=== PATIENT | female | born 1965 | race Caucasian/White ===

== ENCOUNTER 2024-10-30 07:48 | Emergency (ER) | payer SELFPAY ==
[2024-10-30] VITALS (8 sets, daily range): BP systolic 143–212; BP diastolic 69–96; PULSE 79–113; RESP 16–19; TEMP 37; O2SAT 91–97; BMI 25.0
--- NOTE | 2024-10-30 08:40 | CT_ITS ---
WS: [id number] CT ABDOMEN PELVIS TECHNIQUE: Contrast-enhanced CT of the abdomen and pelvis with coronal and sagittal reformatted image s. CLINICAL INFORMATION: abdominal pain, tachy, constipation COMPARISON: None. DLP: 562.[address] scans at [facility] use at least one of these dose optimization techniques: automated e xposure control; mA and/or kV adjustment per patient size (includes targeted exams where dose is matc hed to clinical indication); or iterative reconstruction. FINDINGS: Diffuse irregular gallbladder wall thickening and enhancement with lobulation extending into the RIGH T upper quadrant with surrounding induration in the mesentery. Suspected mass or gallstone in the gal lbladder neck with peripheral enhancement. Diffuse irregular gallbladder wall thickening. Inferior as pect of the gallbladder abuts the colon. In addition proximal gallbladder abuts the traversing duoden um. Patient at risk for enteric and colonic fistulous. Common bile duct at the head of the pancreas a ppears grossly normal. No pancreatic head mass. However there is a lobulated heterogeneously enhancing mass in the LEFT adrenal gland measuring 3.4 c m. Considerations include metastatic disease versus primary adrenal cortical carcinoma. Slight bibasilar atelectasis. Diffuse fatty infiltration of the liver. Normal portal vein and splenic vein. Normal renal parenchymal enhancement. No hydronephrosis in either kidney. Normal caliber abdom inal aorta. Aortic calcification. GE junction is normal. A few prominent lymph nodes in the olena hep atis. Shotty periaortic lymph nodes. Sigmoid diverticulosis. Air-fluid level in the RIGHT colon may be due to adynamic ileus due to RIGHT upper quadrant inflammation. Normal appendix. CT/CT abdomen pelvis w con* [id number] IMPRESSION: 1. Differential considerations include gallbladder carcinoma, xanthogranulomat ous cholecystitis, or complicated/chronic cholecystitis. 2. Diffuse lobulated thickening and enhancement involving the gallbladder exte nding into the RIGHT upper quadrant with surrounding induration suspicious for mesenteric invasion or inflammation possibly with contained perforation or leak age. 3. Suggestion of enhancing mass and/or gallstone in the gallbladder neck measu ring up to 2.1 cm. 4. Common bile duct appears normal at the pancreatic head. 5. Trace perihepatic ascites 6. Enhancing irregular LEFT adrenal mass measuring 3.4 cm suspicious for metas tatic disease or adrenocortical carcinoma. 7. A few enlarged lymph nodes in the olena hepatis. 8. Increased risk of colonic and enteric fistulas due to loss of fat plane bet ween the duodenal sweep and hepatic flexure colon 9. No other acute findings. Notified ADÁN Matta at 10/30/2024 10:37 AM.
--- NOTE | 2024-10-30 08:40 | ED_ITS ---
Documented by User: ADÁN Matta 10/30/24 12:38 HPI - Abdominal Pain 2 General: Chief Complaint: Abdominal Pain Stated Complaint: constipation Time Seen by Provider: 10/30/24 08:15 Source: patient and family Mode of arrival: ambulatory Limitations: no limitations History of Present Illness: Patient is a 59-year-old female presents to ED today with complaint of abdominal pain. Patient states she had a small bowel movement on Saturday but has not produced any further stool since then apart from two small episodes of diarrhea. She reports a decreased output and flatulence. She has not had any vomiting. She states she normally has bowel movements daily. Previous abdominal surgeries include a tubal ligation. She has not been running fevers. She arrives tachycardic and hypertensive. She states she does not have a history of high blood pressure and feels like this is secondary to pain. Significant other states she has laid in bed over the past 2 days due to abdominal pain. Feels like pain is mainly located to her right side. She has not noticed any yellowing to your skin or eyes. Has had a decreased appetite secondary to pain. She is not having any urinary complaints. MD elicited complaint: abdominal pain Pertinent past history: none Onset (ago): day(s) Pain Consistency: constant Location: Diffuse, RUQ and RLQ Severity: severe Quality: cramping and fullness Radiation: none Migration to: no migration Exacerbating factors: nothing Relieving factors: nothing Associated Symptoms: Reports constipation, diarrhea and nausea; Denies change in bowel habits, chills, dysuria, fever(s), hematochezia, melena and vomiting Related Data Home Medications Medication Instructions Recorded Confirmed ibuprofen 200 mg tablet (Advil) 600 mg PO Q6H PRN Pain 10/30/24 10/30/24 senna leaf extract 8.7 mg chewable 17.4 mg PO BID PRN Constipation 10/30/24 10/30/24 tablet (Senokot) Allergies Allergy/AdvReac Type Severity Reaction Status Date / Time Penicillins Allergy ALGY-Hives Verified 10/30/24 08:42 Tetanus Vaccines and Toxoid Allergy Unknown Verified 10/30/24 08:42 Review of Systems 2 Const: Denies: fever(s), chills, body aches, fatigue or malaise Card: Denies: chest pain Resp: Denies: dyspnea GI: Reports: abdominal pain, nausea, diarrhea and constipation; Denies: vomiting, change in bowel habits, hematochezia or melena : Denies: flank pain, difficulty voiding, dysuria, urinary frequency, urinary urgency or urinary hesitancy Musc: Denies: neck pain, back pain, extremity pain, extremity swelling, joint pain or joint swelling Skin/Breast: Denies: rash Neuro: Denies: headache(s), numbness in extremities, weakness in extremities, sensory changes or dizziness Physical Exam 2 Const: COMMON NORMALS: average body habitus, patient oriented x3, no limitations, healthy appearing, alert and well nourished GENERAL APPEARANCE: cooperative and in distress (appear uncomfortable) ORIENTATION/CONSCIOUSNESS: Yes awake, Yes oriented to person, Yes oriented to place and Yes oriented to time HENMT: COMMON NORMALS: normocephalic and atraumatic HEAD & SCALP: n ormocephalic and atraumatic Eye: COMMON NORMALS: no scleral icterus Neck/C-Spine: COMMON NORMALS: full ROM, no lymphadenopathy, supple and no meningeal signs Chest: COMMONS NORMALS: normal inspection of the chest Resp: COMMON NORMALS: normal respiratory effort and clear to auscultation bilaterally AUSCULTATION: clear to auscultation bilaterally Cardio: COMMON NORMALS: regular rhythm RATE: tachycardic RHYTHM: regular rhythm GI: COMMON NORMALS: Normal to inspection, nondistended, normoactive bowel sounds present, Soft to palpation, No hepatosplenomegaly present and no masses INSPECTION: Yes normal to inspection AUSCULTATION: Yes Hypoactive bowel sounds present PALPATION: Yes Soft to palpation, Yes Tenderness to palpation present (GI) (throughout R side of abdomen mainly RUQ), Yes Guarding due to palpation present (GI) and Yes No hepatosplenomegaly present : COMMON NORMALS: Yes no CVA tenderness BLADDER/KIDNEY EXAM: Yes no CVA tenderness Back/Pelvis: COMMON NORMALS: no CVA tenderness and thoracic and lumbar spine normal to inspection Extremity: COMMON NORMALS: normal to inspection GENERAL: Yes normal exam except as noted Neuro: ОЛЬГА COMA SCALE: document GCS findings Ольга coma scale eye opening: Spontaneous Ольга coma scale verbal response: Orientated [place] coma scale motor response: Obey commands [place] coma scale total score: 15 COMMON NORMALS: patient oriented x3, moves all extremities, no focal motor deficits and no sensory deficits noted SENSORIUM/ORIENTATION: Yes alert, Yes oriented to person, Yes oriented to place and Yes oriented to time MENINGEAL SIGNS: Yes no meningeal signs Skin: COMMON NORMALS: no rashes or lesions noted GENERAL SKIN EXAM: no rashes or lesions noted Course 2 Consultations: Consultation #1: Dr. Porter-recommending transfer Consultation #2: Dr. Akhtar-[facility] surgery-accepts transfer YUE Rosario at [facility]-accepts patient Vital Signs: Vital signs: Vital Signs Temperature 98.6 F 10/30/24 08:34 Pulse Rate 93 10/30/24 16:03 Respiratory Rate 19 H 10/30/24 08:34 Blood Pressure 165/75 10/30/24 16:03 Pulse Oximetry 97 10/30/24 16:03 Oxygen Delivery Me thod Room Air 10/30/24 16:03 MDM - Abdominal Pain Medical Decision Making Patient is a 59-year-old female here for right sided abdominal pain over the past several days that has progressively worsened. She was tachycardic upon arrival. These have improved with fluids. Blood work showing a 17,000 white count. She is hyponatremic. LFTs are unremarkable apart from her alk phos which is 175. Her lactate is normal. UA suspicious for infection with a cloudy appearance, 2+ leukocyte esterase, 21-50 WBCs. On exam she is tender to her right upper quadrant. On her CT imaging she does have a significantly abnormal appearing gallbladder. Radiologist stated is diffusely lobulated and thickened. There is some concern for gallbladder carcinoma with mesenteric invasion. They did comment on the possibility of contained perforation or leakage. Spoke to our general surgeon Dr. Porter who is recommending transfer. I spoke to Sherron in [place] who accepts transfer. Dr. Hylton aware of patient and need for transfer. She has been started on IV fluids and antibiotics. Medical Records I reviewed the patient's medical records. Lab Data I reviewed the patient's lab results. 10/30/24 08:56 10/30/24 08:56 Labs/Radiology: Radiology Impressions Abdomen/Pelvis CT 10/30/24 08:40 IMPRESSION: 1. Differential considerations include gallbladder carcinoma, xanthogranulomatous cholecystitis, or complicated/chronic cholecystitis. 2. Diffuse lobulated thickening and enhancement involving the gallbladder extending into the RIGHT upper quadrant with surrounding induration suspicious for mesenteric invasion or inflammation possibly with contained perforation or leakage. 3. Suggestion of enhancing mass and/or gallstone in the gallbladder neck measuring up to 2.1 cm. 4. Common bile duct appears normal at the pancreatic head. 5. Trace perihepatic ascites 6. Enhancing irregular LEFT adrenal mass measuring 3.4 cm suspicious for metastatic disease or adrenocortical carcinoma. 7. A few enlarged lymph nodes in the olena hepatis. 8. Increased risk of colonic and enteric fistulas due to loss of fat plane between the duodenal sweep and hepatic flexure colon 9. No other acute findings. Notified ADÁN Matta at 10/30/2024 10:37 AM. Chest X-Ray 10/30/24 12:00 IMPRESSION: No acute findings. Laboratory Results WBC 17.04 10^3/uL (3.29-11.43) H 10/30/24 08:56 RBC 4.32 10^6/uL (3.85-5.65) 10/30/24 08:56 Hgb 13.90 g/dL (11.27-16.99) 10/30/24 08:56 Hct 40.8 % (36-47) 10/30/24 08:56 MCV 94.4 fl (85-98) 10/30/24 08:56 MCH 32.2 pg (27-33) 10/30/24 08:56 MCHC 34.1 g/dL (30-55) 10/30/24 08:56 RDW 13.2 % (12.1-15.1) 10/30/24 08:56 Plt Count 471 10^3/cmm (157-399) H 10/30/24 08:56 MPV 9.5 fL (7.4-10.4) 10/30/24 08:56 Neut % (Auto) 89.8 % 10/30/24 08:56 Lymph % (Auto) 4.9 % 10/30/24 08:56 [place]lee % (Auto) 4.6 % 10/30/24 08:56 Eos % (Auto) 0.0 % 10/30/24 08:56 Baso % (Auto) 0.1 % 10/30/24 08:56 Neut # (Auto) 15.29 10^3/uL (1.8-7.7) H 10/30/24 08:56 Lymph # (Auto) 0.8 10^3/uL (0.8-4.8) 10/30/24 08:56 Greenlee # (Auto) 0.8 10^3/uL (0.2-0.9) 10/30/24 08:56 Eos # (Auto) 0.0 10^3/uL (0.0-0.8) 10/30/24 08:56 Baso # (Auto) 0.0 10^3/uL (0.0-0.1) 10/30/24 08:56 Nucleated RBC % (auto) 0 % 10/30/24 08:56 Nucleated RBCs # 0.0 /100WBC 10/30/24 08:56 Sodium 127 mmol/L (136-145) L 10/30/24 08:56 Potassium 3.5 mmol/L (3.5-5.1) 10/30/24 08:56 Chloride 89 mmol/L (98-107) L 10/30/24 08:56 Carbon Dioxide 23 mmol/L (22-29) 10/30/24 08:56 Anion Gap 18.5 (5-19) 10/30/24 08:56 BUN 13 mg/dL (8-23) 10/30/24 08:56 Creatinine 0.5 mg/dL (0.5-0.9) 10/30/24 08:56 GFR Calculation 125.9 mL/min (90-130) 10/30/24 08:56 Glucose 141 mg/dL (65-115) H 10/30/24 08:56 Calculated Osmolality 266 mOsm/kg (285-295) L 10/30/24 08:56 Lactic Acid 1.2 mmol/L (0.5-2.2) 10/30/24 08:56 Calcium 9.9 mg/dL (8.5-10.5) 10/30/24 08:56 Total Bilirubin 0.5 mg/dL (0.15-1.2) 10/30/24 08:56 AST 11 U/L (0-32) 10/30/24 08:56 ALT 13 U/L (0-33) 10/30/24 08:56 Alkaline Phosphatase 175 U/L (35-105) H 10/30/24 08:56 Total Protein 8.1 g/dL (6.6-8.7) 10/30/24 08:56 Albumin 3.7 g/dL (3.5-5.2) 10/30/24 08:56 Globulin 4.4 g/dL (1.3-4.6) 10/30/24 08:56 Lipase 12 U/L (13-60) L 10/30/24 08:56 Urine Color Yellow (Yellow) 10/30/24 10:45 Urine Appearance Cloudy (CLEAR) A 10/30/24 10:45 Urine pH 7.0 (5-7) 10/30/24 10:45 Ur Specific [place] 1.026 (1.005-1.030) 10/30/24 10:45 Urine Protein Negative (Negative) 10/30/24 10:45 Urine Glucose (UA) Negative (Normal) 10/30/24 10:45 Urine Ketones Negative (Negative) 10/30/24 10:45 Urine Blood Non-haemolysed trace (Negative) 10/30/24 10:45 Urine Nitrate Negative (Negative) 10/30/24 10:45 Urine Bilirubin Negative (Negative) 10/30/24 10:45 Urine Urobilinogen 0.2 mg/dL (Negative) 10/30/24 10:45 Ur Leukocyte Esterase 2+ (Negative) A 10/30/24 10:45 Urine RBC 0-2 /hpf (0-2) 10/30/24 10:45 Urine WBC 21-50 /hpf (0-5) H 10/30/24 10:45 Ur Squamous Epith Cells 0-5 /hpf (0-5) 10/30/24 10:45 Amorphous Sediment Not Reportable 10/30/24 10:45 Urine Bacteria 1+ /hpf (NONE) H 10/30/24 10:45 Hyaline Casts 0-4 /lpf H 10/30/24 10:45 Urine Trichomonas 1+ /hpf H 10/30/24 10:45 All radiology interpretation(s) finalized by discharge Discharge Plan Discharge Patient Disposition: Xfer Short-Term Hosp Clinical Impression: Abnormal findings on diagnostic imaging of gallbladder, Adrenal mass Acute cystitis Qualifiers: Hematuria presence: without hematuria Qualified Code(s): N30.00 - Acute cystitis without hematuria Condition: Stable Referrals: Felipe Lay MD [Primary Care Provider] - Coding Level of Care Code ED Superintendent Radio Communications for Chg Fwd Documented by User: Cedric Hylton DO 10/30/24 16:45 HPI - Abdominal Pain 2 General: Chief Complaint: Abdominal Pain Stated Complaint: constipation Time Seen by Provider: 10/30/24 08:15 Related Data Home Medications Medication Instructions Recorded Confirmed ibuprofen 200 mg tablet (Advil) 600 mg PO Q6H PRN Pain 10/30/24 10/30/24 senna leaf extract 8.7 mg chewable 17.4 mg PO BID PRN Constipation 10/30/24 10/30/24 tablet (Senokot) Allergies Allergy/AdvReac Type Severity Reaction Status Date / Time Penicillins Allergy ALGY-Hives Verified 10/30/24 08:42 Tetanus Vaccines and Toxoid Allergy Unknown Verified 10/30/24 08:42 Physical Exam 2 Neuro: ОЛЬГА COMA SCALE: document GCS findings Ольга coma scale total score: 15 Course 2 Vital Signs: Vital signs: Vital Signs Temperature 98.6 F 10/30/24 08:34 Pulse Rate 93 10/30/24 16:03 Respiratory Rate 19 H 10/30/24 08:34 Blood Pressure 165/75 10/30/24 16:03 Pulse Oximetry 97 10/30/24 16:03 Oxygen Delivery Me thod Room Air 10/30/24 16:03 MDM - Abdominal Pain Medical Decision Making Patient is a 59-year-old female here for right sided abdominal pain over the past several days that has progressively worsened. She was tachycardic upon arrival. These have improved with fluids. Blood work showing a 17,000 white count. She is hyponatremic. LFTs are unremarkable apart from her alk phos which is 175. Her lactate is normal. UA suspicious for infection with a cloudy appearance, 2+ leukocyte esterase, 21-50 WBCs. On exam she is tender to her right upper quadrant. On her CT imaging she does have a significantly abnormal appearing gallbladder. Radiologist stated is diffusely lobulated and thickened. There is some concern for gallbladder carcinoma with mesenteric invasion. They did comment on the possibility of contained perforation or leakage. Spoke to our general surgeon Dr. Porter who is recommending transfer. I spoke to Sherron in [place] who accepts transfer. Dr. Hylton aware of patient and need for transfer. She has been started on IV fluids and antibiotics. Chart reviewed and patient discussed with midlevel. Agree with assessment and plan. Lab Data 10/30/24 08:56 12 08:56 Labs/Radiology: Radiology Impressions Abdomen/Pelvis CT 10/30/24 08:40 IMPRESSION: 1. Differential considerations include gallbladder carcinoma, xanthogranulomatous cholecystitis, or complicated/chronic cholecystitis. 2. Diffuse lobulated thickening and enhancement involving the gallbladder extending into the RIGHT upper quadrant with surrounding induration suspicious for mesenteric invasion or inflammation possibly with contained perforation or leakage. 3. Suggestion of enhancing mass and/or gallstone in the gallbladder neck measuring up to 2.1 cm. 4. Common bile duct appears normal at the pancreatic head. 5. Trace perihepatic ascites 6. Enhancing irregular LEFT adrenal mass measuring 3.4 cm suspicious for metastatic disease or adrenocortical carcinoma. 7. A few enlarged lymph nodes in the olena hepatis. 8. Increased risk of colonic and enteric fistulas due to loss of fat plane between the duodenal sweep and hepatic flexure colon 9. No other acute findings. Notified ADÁN Matta at 10/30/2024 10:37 AM. Chest X-Ray 10/30/24 12:00 IMPRESSION: No acute findings. Laboratory Results WBC 17.04 10^3/uL (3.29-11.43) H 10/30/24 08:56 RBC 4.32 10^6/uL (3.85-5.65) 10/30/24 08:56 Hgb 13.90 g/dL (11.27-16.99) 10/30/24 08:56 Hct 40.8 % (36-47) 10/30/24 08:56 MCV 94.4 fl (85-98) 10/30/24 08:56 MCH 32.2 pg (27-33) 10/30/24 08:56 MCHC 34.1 g/dL (30-55) 10/30/24 08:56 RDW 13.2 % (12.1-15.1) 10/30/24 08:56 Plt Count 471 10^3/cmm (157-399) H 10/30/24 08:56 MPV 9.5 fL (7.4-10.4) 10/30/24 08:56 Neut % (Auto) 89.8 % 10/30/24 08:56 Lymph % (Auto) 4.9 % 10/30/24 08:56 [place] % (Auto) 4.6 % 10/30/24 08:56 Eos % (Auto) 0.0 % 10/30/24 08:56 Baso % (Auto) 0.1 % 10/30/24 08:56 Neut # (Auto) 15.29 10^3/uL (1.8-7.7) H 10/30/24 08:56 Lymph # (Auto) 0.8 10^3/uL (0.8-4.8) 10/30/24 08:56 [place] # (Auto) 0.8 10^3/uL (0.2-0.9) 10/30/24 08:56 Eos # (Auto) 0.0 10^3/uL (0.0-0.8) 10/30/24 08:56 Baso # (Auto) 0.0 10^3/uL (0.0-0.1) 10/30/24 08:56 Nucleated RBC % (auto) 0 % 10/30/24 08:56 Nucleated RBCs # 0.0 /100WBC 10/30/24 08:56 Sodium 127 mmol/L (136-145) L 10/30/24 08:56 Potassium 3.5 mmol/L (3.5-5.1) 10/30/24 08:56 Chloride 89 mmol/L (98-107) L 10/30/24 08:56 Carbon Dioxide 23 mmol/L (22-29) 10/30/24 08:56 Anion Gap 18.5 (5-19) 10/30/24 08:56 BUN 13 mg/dL (8-23) 10/30/24 08:56 Creatinine 0.5 mg/dL (0.5-0.9) 10/30/24 08:56 GFR Calculation 125.9 mL/min (90-130) 10/30/24 08:56 Glucose 141 mg/dL (65-115) H 10/30/24 08:56 Calculated Osmolality 266 mOsm/kg (285-295) L 10/30/24 08:56 Lactic Acid 1.2 mmol/L (0.5-2.2) 10/30/24 08:56 Calcium 9.9 mg/dL (8.5-10.5) 10/30/24 08:56 Total Bilirubin 0.5 mg/dL (0.15-1.2) 10/30/24 08:56 AST 11 U/L (0-32) 10/30/24 08:56 ALT 13 U/L (0-33) 10/30/24 08:56 Alkaline Phosphatase 175 U/L (35-105) H 10/30/24 08:56 Total Protein 8.1 g/dL (6.6-8.7) 10/30/24 08:56 Albumin 3.7 g/dL (3.5-5.2) 10/30/24 08:56 Globulin 4.4 g/dL (1.3-4.6) 10/30/24 08:56 Lipase 12 U/L (13-60) L 10/30/24 08:56 Urine Color Yellow (Yellow) 10/30/24 10:45 Urine Appearance Cloudy (CLEAR) A 10/30/24 10:45 Urine pH 7.0 (5-7) 10/30/24 10:45 Ur Specific [place] 1.026 (1.005-1.030) 10/30/24 10:45 Urine Protein Negative (Negative) 10/30/24 10:45 Urine Glucose (UA) Negative (Normal) 10/30/24 10:45 Urine Ketones Negative (Negative) 10/30/24 10:45 Urine Blood Non-haemolysed trace (Negative) 10/30/24 10:45 Urine Nitrate Negative (Negative) 10/30/24 10:45 Urine Bilirubin Negative (Negative) 10/30/24 10:45 Urine Urobilinogen 0.2 mg/dL (Negative) 10/30/24 10:45 Ur Leukocyte Esterase 2+ (Negative) A 10/30/24 10:45 Urine RBC 0-2 /hpf (0-2) 10/30/24 10:45 Urine WBC 21-50 /hpf (0-5) H 10/30/24 10:45 Ur Squamous Epith Cells 0-5 /hpf (0-5) 10/30/24 10:45 Amorphous Sediment Not Reportable 10/30/24 10:45 Urine Bacteria 1+ /hpf (NONE) H 10/30/24 10:45 Hyaline Casts 0-4 /lpf H 10/30/24 10:45 Urine Trichomonas 1+ /hpf H 10/30/24 10:45 Discharge Plan Discharge Patient Disposition: Xfer Short-Term Hosp Clinical Impression: Abnormal findings on diagnostic imaging of gallbladder, Adrenal mass Acute cystitis Qualifiers: Hematuria presence: without hematuria Qualified Code(s): N30.00 - Acute cystitis without hematuria Condition: Stable Referrals: Felipe Lay MD [Primary Care Provider] - Coding Level of Care Code ED Superintendent Radio Communications for Luisito Negron
[2024-10-30 09:09] LABS: Basophils % 0.1 %; Hematocrit 40.8 % (36-47); Lymphocytes # 0.8 10^3/uL (0.8-4.8); Lymphocytes % 4.9 %; Mean Corpuscular HGB Conc 34.1 g/dL (30-55); Mean Corpuscular Hemoglobin 32.2 pg (27-33); Mean Corpuscular Volume 94.4 fl (85-98); Mean Platelet Volume 9.5 fL (7.4-10.4); Monocytes # 0.8 10^3/uL (0.2-0.9); Monocytes % 4.6 %; Neutrophils # 15.29 10^3/uL (1.8-7.7); Neutrophils % 89.8 %; Nucleated Red Blood Cells % 0 %; Platelet Count 471 10^3/cmm (157-399); Red Blood Count 4.32 10^6/uL (3.85-5.65); Red Cell Distribution Width 13.2 % (12.1-15.1); White Blood Count 17.04 10^3/uL (3.29-11.43)
[2024-10-30] MEDS: ondansetron 2 mg/ML SDV 2 mL 4 MG IVP (09:28)
[2024-10-30 09:29] LABS: Alanine Aminotransferase 13 U/L (0-33); Albumin Level 3.7 g/dL (3.5-5.2); Alkaline Phosphatase 175 U/L (35-105); Anion Gap 18.5 (5-19); Aspartate Amino Transferase 11 U/L (0-32); Blood Urea Nitrogen 13 mg/dL (8-23); Calcium 9.9 mg/dL (8.5-10.5); Carbon Dioxide 23 mmol/L (22-29); Chloride 89 mmol/L (98-107); Creatinine Clr Calc Pharmacy 120.3275; Globulin 4.4 g/dL (1.3-4.6); Glomerular Filtration Rate 125.9 mL/min (90-130); Glucose 141 mg/dL (65-115); Lactic Sepsis W/Reflex 1.2 mmol/L (0.5-2.2); Lipase 12 U/L (13-60); Osmolality Calculated 266 mOsm/kg (285-295); Potassium 3.5 mmol/L (3.5-5.1); Sodium 127 mmol/L (136-145); Total Bilirubin 0.5 mg/dL (0.15-1.2); Total Protein 8.1 g/dL (6.6-8.7)
[2024-10-30] MEDS: morphine 4 mg/mL SDV 1 mL IVP ×3 (09:30→18:38)
[2024-10-30] MEDS: sodium chloride 0.9% 1,000 ML 999 ML IV ×2 (09:32)
[2024-10-30] MEDS: iohexol 350 mg/mL 500 mL Btl (per mL) IV (09:51)
[2024-10-30] MEDS: cefepime 1,000 mg SDV 1000 MG IVP (10:38)
[2024-10-30] MEDS: metroNIDAZOLE IV 500 MG/100 ML PREMIX 100 MG IV (10:38)
[2024-10-30 10:52] LABS: Hyaline Casts Urine 0-4 /lpf; RBC Urine 0-2 /hpf (0-2); Squamous Epithelial Cell Urine 0-5 /hpf (0-5); WBC Urine 21-50 /hpf (0-5)
[2024-10-30 10:56] LABS: Add Urine Microscopic? YES; Bilirubin Urine Negative (Negative); Blood Urine Non-haemolysed trace (Negative); Glucose Urine UA Negative (Normal); Ketones Urine Negative (Negative); Leukocyte Esterase Urine 2+ (Negative); Nitrate Urine Negative (Negative); Protein Urine Negative (Negative); Specific Gravity, Urine 1.026 (1.005-1.030); Urine Color Yellow (Yellow); Urobilinogen Urine 0.2 mg/dL (Negative)
[2024-10-30 11:00] LABS: Add Urine Culture? Yes; Bacteria Urine 1+ /hpf; Trichomonas Urine 1+ /hpf; UA Slide Review UA Slide Review Perf; Urine Appearance Cloudy (CLEAR)
--- NOTE | 2024-10-30 12:00 | XRR_ITS ---
PROCEDURE INFORMATION: Exam: XR Chest Exam date and time: 10/30/2024 12:04 PM Age: 59 years old Clinical indication: Angina pectoris; Patient HX: Abd pain and constipation; Additional info: Chest pain TECHNIQUE: Imaging protocol: Radiologic exam of the chest. Views: 1 view. COMPARISON: CR XR ribs RT mn 3V w CXR1V [id number] 10/13/2018 7:05 PM FINDINGS: Lungs: Unremarkable. No consolidation. Pleural spaces: Unremarkable. No pleural effusion. No pneumothorax. Heart/Mediastinum: Unremarkable. No cardiomegaly. Bones/joints: Unremarkable. XR/XR chest 1V portable [id number] IMPRESSION: No acute findings.
--- NOTE | 2024-10-30 13:25 | P.CONIM_ITS ---
Providers/Reason For Consult 2 Consulting Physician/Specialty*: Dr. Bar Porter, DO/General Surgery Reason for Consult*: Abdominal pain Primary Care Provider: Felipe Lay MD History of Present Illness History of Present Illness Naomi Lisa is a 59 year old female Who presented to the hospital with a 6-day history of diffuse abdominal pain. She reports that she has not had a bowel movement for several days. She normally has bowel movement every day. She has had nausea as well. The pain is diffuse but mostly in the right flank. The pain does not radiate. Palpation and eating make the pain worse. Nothing seems make the pain better. She denies any hematochezia and/or melena Review of Systems 2 General: Reports: 10 or more systems reviewed and unremarkable except in HPI and below Medications/Allergies Home Medications Medication Instructions Recorded Confirmed Last Taken Type ibuprofen 200 mg tablet (Advil) 600 mg PO Q6H PRN Pain 10/30/24 10/30/24 10/27/24 History senna leaf extract 8.7 mg chewable 17.4 mg PO BID PRN Constipation 10/30/24 10/30/24 10/29/24 History tablet (Senokot) Allergies Allergy/AdvReac Type Severity Reaction Status Date / Time Penicillins Allergy ALGY-Hives Verified 10/30/24 08:42 Tetanus Vaccines and Toxoid Allergy Unknown Verified 10/30/24 08:42 Vitals/I&O/Wt Last Vital Signs Temp 98.6 F 10/30/24 08:34 Pulse 94 10/30/24 12:24 Resp 19 H 10/30/24 08:34 BP 154/79 10/30/24 12:24 Pulse Ox 91 10/30/24 12:24 O2 Del Method Room Air 10/30/24 12:24 Weight last 48 hrs Weight 155 lb Physical Exam 2 Narrative: General : Patient is well developed , no acute distress, oriented x3 Head : Normal cephalic, a-traumatic. Ears : Pinnae and external canal are normal. Hearing is normal. Eyes : PERRLA, Sclera and injection are normal. No conjunctival discharge. Nose : Mucous membranes are without erythema. Throat : buccal mucosa is normal, gums are without significant recession or hypertrophy. Lungs : Equal chest rise bilaterally, no use of accessory muscles, trachea is midline. Cor : Rate and rhythm are normal. Abdomen : Soft, distended, diffuse abdominal tenderness, negative Degroot's no g/r/m Extremities : No edema, no cyanosis or clubbing, dorsalis pedis pulses are present bilaterally, non-tender to palpation of calves. Upper extremities are normal bilaterally. Back : non-tender to palpation, no CVA tenderness. Neuro : CN II - XII intact, Upper and lower extremities have equal and full strength. Data 10/30/24 08:56 10/30/24 08:56 Micro: Microbiology 10/30/24 09:33 Blood Culture - Preliminary Blood SPECIMEN COLLECTED 10/30/24 09:30 Blood Culture - Preliminary Blood SPECIMEN COLLECTED A&P Assessment and plan (1) Abnormal findings on diagnostic imaging of gallbladder: (2) Adrenal mass: Plan Presentation and imaging are very concerning for neoplastic process involving the gallbladder. There appears to be gallbladder wall invasion into the surrounding mesentery. There is also a 3.3 cm circular heterogenous mass in the area of the left adrenal gland. Process involving the gallbladder abuts the duodenum and hepatic flexure of the colon and there is surrounding mesenteric inflammation without any pericholecystic fluid. Cholecystitis alone most likely. Recommend transfer to tertiary care facility. She has been accepted at [facility] Coding Level of Care Code 04289 Diagnoses Abnormal findings on diagnostic imaging of gallbladder R93.2 Adrenal mass E27.8
--- NOTE | 2024-10-30 20:41 | PC.NURSE ---
MATT SHELBY, ASSUMED CARE OF PT AT 1900. PER REPORT, PT REPORT HAD BEEN CALLED AND PT WAS ONLY AWAITING TRANSPORT VIA EMS.
== END 2024-10-30 20:46 | disposition short-term general hospital (02) ==
PROVIDERS: Emergency Provider Physician Assistant; PCP Family Medicine
DX: R93.2 Abnormal findings on diagnostic imaging of liver and biliary tract (principal); N30.00 Acute cystitis without hematuria
CPT/HCPCS: 71045; 74177; 80053; 81001; 83605; 83690; 85025; 87040; 87086; 96365; 96366; 96367; 96375; 96376; 99285; J0692; J2270; J2405; J3490; J7030

== ENCOUNTER 2024-12-14 04:46 | Emergency (ER) | payer BC, MEDICAID, SELFPAY ==
[2024-12-14] VITALS (12 sets, daily range): BP systolic 95–149; BP diastolic 62–88; PULSE 73–99; RESP 12–18; O2SAT 90–97; BMI 26.3
--- NOTE | 2024-12-14 04:51 | XRR_ITS ---
PROCEDURE INFORMATION: Exam: XR Right Humerus Exam date and time: 12/14/2024 5:05 AM Age: 59 years old Clinical indication: Injury or trauma; Fall; Blunt trauma (contusions or hematomas); Arm, upper; Right; Additional info: Arm pain post fall TECHNIQUE: Imaging protocol: Radiologic exam of the right humerus. Views: 2 or more views. COMPARISON: CR XR chest 1V portable [id number] 10/30/2024 12:04 PM FINDINGS: Bones/joints: Spiral fracture deformity in the proximal humeral diaphysis. At least moderate severity displacement. Varus angulation deformity. Soft tissues: Upper arm swelling. XR/[place] [id number] IMPRESSION: Positive for acute right proximal humerus diaphyseal fracture.
--- NOTE | 2024-12-14 04:54 | CTR_ITS ---
PROCEDURE INFORMATION: Exam: CT Cervical Spine Without Contrast Exam date and time: 12/14/2024 5:24 AM Age: 59 years old Clinical indication: Injury or trauma; Fall; Blunt trauma; Additional info: Fall on ETOH TECHNIQUE: Imaging protocol: Computed tomography of the cervical spine without contrast. Radiation optimization: All CT scans at this facility use at least one of these dose optimization techniques: automated exposure control; mA and/or kV adjustment per patient size (includes targeted exams where dose is matched to clinical indication); or iterative reconstruction. COMPARISON: CT head wo con* [id number] 12/14/2024 5:21 AM RADIATION DOSE METRICS: Total DLP (mGy-cm): 233.87 FINDINGS: Bones: The cervical spine demonstrates moderate degenerative changes at multiple levels. C4-C5 anterolisthesis measures 2.5 mm. Negative for acute fracture. Negative for traumatic malalignment. Lungs: Lung apices are normal. Soft tissues: Unremarkable. CT/CT cervical spin wo con* [id number] IMPRESSION: Negative for acute cervical spine pathology.
--- NOTE | 2024-12-14 04:54 | CTR_ITS ---
PROCEDURE INFORMATION: Exam: CT Head Without Contrast Exam date and time: 12/14/2024 5:21 AM Age: 59 years old Clinical indication: Injury or trauma; Fall; Blunt trauma (contusions or hematomas); Additional info: Fall on ETOH TECHNIQUE: Imaging protocol: Computed tomography of the head without contrast. Radiation optimization: All CT scans at this facility use at least one of these dose optimization techniques: automated exposure control; mA and/or kV adjustment per patient size (includes targeted exams where dose is matched to clinical indication); or iterative reconstruction. COMPARISON: No relevant prior studies available. RADIATION DOSE METRICS: Total DLP (mGy-cm): 1010.6 FINDINGS: Brain: Normal. No hemorrhage. Unremarkable white matter. No mass effect. Cerebral ventricles: No ventriculomegaly. Paranasal sinuses: Visualized sinuses are unremarkable. No fluid levels. Mastoid air cells: Visualized mastoid air cells are well aerated. Bones: Unremarkable. No acute fracture. Soft tissues: Unremarkable. CT/CT head wo con* [id number] IMPRESSION: No acute intracranial abnormality.
--- NOTE | 2024-12-14 04:55 | PC.NURSE ---
Unable to assess for suicide risk due to patient being on ETOH.
--- NOTE | 2024-12-14 05:04 | ED_ITS ---
Documented by User: Jourdan Clancy MD 12/14/24 06:07 HPI - Extremity Problem 2 General: Chief complaint: Extremity Injury, Upper Stated complaint: FALL Time Seen by Provider: 12/14/24 04:48 Source: patient and EMS Mode of arrival: EMS Limitations: altered mental status History of Present Illness: Patient arrives him home after fall. Brought in by EMS. Patient has obvious deformity to the right upper arm, reports no pain. Patient does appear quite inebriated from alcohol. She had #6 12 ounce twisted teas tonight. Related Data Home Medications Medication Instructions Recorded Confirmed ibuprofen 200 mg tablet (Advil) 600 mg PO Q6H PRN Pain 10/30/24 12/14/24 senna leaf extract 8.7 mg chewable 17.4 mg PO BID PRN Constipation 10/30/24 12/14/24 tablet (Senokot) Previous Rx's Medication Instructions Recorded hydrocodone 5 mg-acetaminophen 325 1 tab PO Q6H PRN pain #25 tabs 12/14/24 mg tablet Allergies Allergy/AdvReac Type Severity Reaction Status Date / Time Penicillins Allergy ALGY-Hives Verified 10/30/24 08:42 Tetanus Vaccines and Toxoid Allergy Unknown Verified 10/30/24 08:42 Review of Systems 2 General: Reports: 10 or more systems reviewed and unremarkable except in HPI and below Physical Exam 2 Const: COMMON NORMALS: no acute distress, patient oriented x3, alert and well nourished GENERAL APPEARANCE: comfortable, well kempt, well developed, ill appearing (chronically ill appearing) and odor of alcohol detected; not in distress and not anxious HENMT: COMMON NORMALS: normocephalic, atraumatic, external ears normal and moist oral mucous membranes HEAD & SCALP: normocephalic and atraumatic E XTERNAL EAR: Yes external ears normal Eye: COMMON NORMALS: Equal, round and reactive pupils present, EOMs intact bilaterally and conjunctivae normal CONJUNCTIVA: Yes conjunctivae normal P UPIL: Yes Equal, round and reactive pupils present Neck/C-Spine: COMMON NORMALS: full ROM, no lymphadenopathy and supple Chest: CHEST: Yes Symmetrical chest wall rise and No Surgical scars present (Chest) Resp: COMMON NORMALS: normal respiratory effort, No retractions, No use of accessory muscles and clear to auscultation bilaterally AUSCULTATION: clear to auscultation bilaterally Cardio: COMMON NORMALS: regular rate, regular rhythm, S1 normal heart sound present, S2 normal heart sound present, No gallops present (Cardio), No clicks present (Cardio), No murmurs present (Cardio) and No rub (Cardio) RATE: r egular rate RHYTHM: regular rhythm HEART SOUNDS: S1 normal heart sound present, S2 normal heart sound present and no murmurs PERIPHERAL PULSES: o ther (Radial pulses 2+ and symmetric) GI: COMMON NORMALS: Soft to palpation, non-tender and no masses INSPECTION: No abdominal distension PALPATION: Yes Soft to palpation, No Guarding due to palpation present (GI) and No Rebound tenderness present OTHER: Dull to percussion, distended abdomen with biliary drain in the right lateral abdominal wall : COMMON NORMALS: Yes no CVA tenderness BLADDER/KIDNEY EXAM: Yes no CVA tenderness Back/Pelvis: COMMON NORMALS: no CVA tenderness Extremity: COMMON NORMALS: capillary refill normal and no clubbing, cyanosis or edema NARRATIVE EXTREMITY EXAM: Right upper extremity with obvious deformity of the proximal humerus. Appears to be neurovascularly intact distal to the injury though patient is so intoxicated full exam is limited. GENERAL: Yes normal exam except as noted Neuro: COMMON NORMALS: patient oriented x3 SENSORIUM/ORIENTATION: Yes alert Psych: APPEARANCE: Yes well kempt Skin: COMMON NORMALS: no rashes or lesions noted, no wounds, turgor normal and no jaundice GENERAL SKIN EXAM: no rashes or lesions noted and turgor normal Course 2 Vital Signs: Vital signs: Vital Signs Pulse Rate 78 12/14/24 13:28 Respiratory Rate 16 12/14/24 08:31 Blood Pressure 149/85 12/14/24 13:28 Pulse Oximetry 92 12/14/24 13:28 Oxygen Delivery Me thod Room Air 12/14/24 12:45 Oxygen Flow Rate 2 12/14/24 11:00 MDM - Extremity (Nontraumatic) Medical Decision Making Patient had some mild hypoxia likely secondary to her EtOH intoxication, placed on oxygen. X-rays pending read at this time as well as CT scans. Handoff to Dr. Hylton due to shift change. Medical Records I reviewed the patient's medical records. Lab Data 12/14/24 05:54 12/14/24 05:54 Radiology Impressions Humerus X-Ray 12/14/24 04:51 IMPRESSION: Positive for acute right proximal humerus diaphyseal fracture. Cervical Spine CT 12/14/24 04:54 IMPRESSION: Negative for acute cervical spine pathology. Head CT 12/14/24 04:54 IMPRESSION: No acute intracranial abnormality. Humerus CT 12/14/24 05:10 IMPRESSION: Completely displaced right proximal humerus fracture. Abdomen/Pelvis CT 12/14/24 09:05 IMPRESSION: 1. Placement of an interval cholecystostomy tube since 10/30/2024. Cholecystotomy pigtail is coiled in the gallbladder fossa but there is no surrounding fluid/bile. The pigtail may be appropriate in position within a contracted gallbladder lumen adjacent to the gallbladder mass. To confirm placement a small amount of dilute contrast can be injected through the catheter if clinically appropriate. 2. Significant improvement in the gallbladder hydrops and the inflammatory changes and neoplastic changes in the RIGHT upper quadrant since 10/30/2024. 3. RIGHT common bile duct stent with no intrahepatic duct dilatation. 4. Small olena hepatis lymph nodes. 5. Highly suspicious for LEFT adrenal metastasis. Notified Cedric Hylton DO at 12/14/2024 10:[address] Procedure 12/14/24 11:28 IMPRESSION: 1. Uncomplicated dilute contrast injection of the cholecystotomy tube. 2. There is a small amount of contrast and blush of contrast adjacent to the insertion site of the cholecystotomy through the abdominal wall musculature. There may be a small fracture in the catheter. The patient's bandage became wet after the injection. 3. The pigtail of the cholecystotomy catheter appears appropriate. Patient's bandages were changed and the sutures at the insertion site of the cholecystotomy tube appear appropriate and there is no suture fracture. Laboratory Results WBC 17.72 10^3/uL (3.29-11.43) H 12/14/24 05:54 RBC 4.13 10^6/uL (3.85-5.65) 12/14/24 05:54 Hgb 13.10 g/dL (11.27-16.99) 12/14/24 05:54 Hct 41.5 % (36-47) 12/14/24 05:54 MCV 100.5 fl (85-98) H 12/14/24 05:54 MCH 31.7 pg (27-33) 12/14/24 05:54 MCHC 31.6 g/dL (30-55) 12/14/24 05:54 RDW 15.1 % (12.1-15.1) 12/14/24 05:54 Plt Count 235 10^3/cmm (157-399) 12/14/24 05:54 MPV 10.0 fL (7.4-10.4) 12/14/24 05:54 Neut % (Auto) 91.0 % 12/14/24 05:54 Lymph % (Auto) 5.3 % 12/14/24 05:54 Callaway % (Auto) 2.8 % 12/14/24 05:54 Eos % (Auto) 0.2 % 12/14/24 05:54 Baso % (Auto) 0.2 % 12/14/24 05:54 Neut # (Auto) 16.12 10^3/uL (1.8-7.7) H 12/14/24 05:54 Lymph # (Auto) 0.9 10^3/uL (0.8-4.8) 12/14/24 05:54 Callaway # (Auto) 0.5 10^3/uL (0.2-0.9) 12/14/24 05:54 Eos # (Auto) 0.0 10^3/uL (0.0-0.8) 12/14/24 05:54 Baso # (Auto) 0.0 10^3/uL (0.0-0.1) 12/14/24 05:54 Nucleated RBC % (auto) 0 % 12/14/24 05:54 Nucleated RBCs # 0.0 /100WBC 12/14/24 05:54 Sodium 134 mmol/L (136-145) L 12/14/24 05:54 Potassium 3.7 mmol/L (3.5-5.1) 12/14/24 05:54 Chloride 98 mmol/L (98-107) 12/14/24 05:54 Carbon Dioxide 19 mmol/L (22-29) L 12/14/24 05:54 Anion Gap 20.7 (5-19) H 12/14/24 05:54 BUN 10 mg/dL (8-23) 12/14/24 05:54 Creatinine 0.5 mg/dL (0.5-0.9) 12/14/24 05:54 GFR Calculation 125.9 mL/min (90-130) 12/14/24 05:54 Glucose 177 mg/dL (65-115) H 12/14/24 05:54 Calculated Osmolality 281 mOsm/kg (285-295) L 12/14/24 05:54 Calcium 8.8 mg/dL (8.5-10.5) 12/14/24 05:54 Total Bilirubin 0.2 mg/dL (0.15-1.2) 12/14/24 05:54 AST 31 U/L (0-32) 12/14/24 05:54 ALT 27 U/L (0-33) 12/14/24 05:54 Alkaline Phosphatase 120 U/L (35-105) H 12/14/24 05:54 Total Protein 6.9 g/dL (6.6-8.7) 12/14/24 05:54 Albumin 3.9 g/dL (3.5-5.2) 12/14/24 05:54 Globulin 3.0 g/dL (1.3-4.6) 12/14/24 05:54 Lipase 16 U/L (13-60) 12/14/24 05:54 Ethyl Alcohol < 10 mg/dL (0-10) 12/14/24 05:54 XR interpretation done by ED provider, pending radiology final review ED provider radiology interpretation(s): Proximal humerus fracture, displaced Discharge Plan Discharge Patient Disposition: Home Clinical Impression: Migration of percutaneous transhepatic biliary drain catheter Fracture of proximal end of right humerus Qualifiers: Encounter type: initial encounter Fracture type: closed Fracture morphology: o ther fracture Fracture alignment: displaced Qualified Code(s): S42.291A - Other displaced fracture of upper end of right humerus, initial encounter for closed fracture Condition: Stable Prescriptions: New hydrocodone-acetaminophen 5-325 mg tablet 1 tab PO Q6H PRN (Reason: pain) Qty: 25 0RF No Action ibuprofen [Advil] 200 mg Tablet 600 mg PO Q6H PRN (Reason: Pain) Senokot 8.7 mg Tablet,Chewable 17.4 mg PO BID PRN (Reason: Constipation) Discharge Orders: Discharge ED (Routine); Ordered 12/14/24 Ordered By: Cedric Hylton Referrals: Felipe Lay MD [Primary Care Provider] - Discharge Diet: Usual diet Discharge Activity: Resume usual activity Patient Instructions: Opioid Safety, Pain Management Activity Restrictions/Additional Instructions: Thank you for choosing [facility] for your healthcare needs today. It is very important that you follow up as instructed or that you return to the Emergency Department should you have concerns or if your condition changes or worsens in any way. You were seen in the emergency room after a fall. You have a fracture of the midshaft of the humerus. You will need follow-up with this with orthopedics. Reviewed the case with Dr. Sams who is orthopedist on-call. He recommends the splint that we applied along with a sling pain medications. And he will follow- up with you in his office. Case management will call for appointment. There was a concern about the placement of the cholecystectomy tube. Imaging specific to this with contrast injected shows it is in good position however there is appears to be a small leak at the insertion site through the abdominal wall. The radiologist suspects a small leak in the tube itself. While this is not emergent it should be addressed by the physicians you have seen previously at [facility]. You should call them to make an appointment as soon as you are able Sign Out Sign Out Data: Patient Sign Out occurred on 12/14/24 at 05:58. Patient's care was discussed, and care was transferred from Jourdan Clancy MD to Cedric Hylton DO. Coding Level of Care Code ED Digital Print Operator for Chg Fwd Documented by User: Cedric Hylton DO 12/14/24 15:14 HPI - Extremity Problem 2 General: Chief complaint: Extremity Injury, Upper Stated complaint: FALL Time Seen by Provider: 12/14/24 04:48 Related Data Home Medications Medication Instructions Recorded Confirmed ibuprofen 200 mg tablet (Advil) 600 mg PO Q6H PRN Pain 10/30/24 12/14/24 senna leaf extract 8.7 mg chewable 17.4 mg PO BID PRN Constipation 10/30/24 12/14/24 tablet (Senokot) Previous Rx's Medication Instructions Recorded hydrocodone 5 mg-acetaminophen 325 1 tab PO Q6H PRN pain #25 tabs 12/14/24 mg tablet Allergies Allergy/AdvReac Type Severity Reaction Status Date / Time Penicillins Allergy ALGY-Hives Verified 10/30/24 08:42 Tetanus Vaccines and Toxoid Allergy Unknown Verified 10/30/24 08:42 Course 2 Vital Signs: Vital signs: Vital Signs Pulse Rate 78 12/14/24 13:28 Respiratory Rate 16 12/14/24 08:31 Blood Pressure 149/85 12/14/24 13:28 Pulse Oximetry 92 12/14/24 13:28 Oxygen Delivery Me thod Room Air 12/14/24 12:45 Oxygen Flow Rate 2 12/14/24 11:00 MDM - Extremity (Nontraumatic) Medical Decision Making Patient had some mild hypoxia likely secondary to her EtOH intoxication, placed on oxygen. X-rays pending read at this time as well as CT scans. Handoff to Dr. Hylton due to shift change. Patient has a proximal third humerus fracture discussed with Dr. Sams he recommends a coaptation splint sling and he will see as an outpatient to discuss definitive care. Patient's cholecystectomy tube was possibly distracted in the course of her fall. CT was done after consultation with Dr. Grace she recommended CT with contrast. She said is difficult to completely ascertain but she feels fairly comfortable that the tube is in good position and recommended injecting with small amount of contrast to verify completely. Patient initially told that she has an appointment with GI services that but the cholecystectomy tube and biliary stent in the last month at [facility], tomorrow. I called up and talk to the fellow at the GI services. The patient actually missed the follow-up appointment with GI service issues post have her biliary stent out. They did recommend that we injected to verify placement I did forward the films to them. They are going to contact her, we also advised the patient to contact the specialty services at [facility]?for follow-up. Lab Data I reviewed the patient's lab results. 12/14/24 05:54 12/14/24 05:54 Radiology Impressions Humerus X-Ray 12/14/24 04:51 IMPRESSION: Positive for acute right proximal humerus diaphyseal fracture. Cervical Spine CT 12/14/24 04:54 IMPRESSION: Negative for acute cervical spine pathology. Head CT 12/14/24 04:54 IMPRESSION: No acute intracranial abnormality. Humerus CT 12/14/24 05:10 IMPRESSION: Completely displaced right proximal humerus fracture. Abdomen/Pelvis CT 12/14/24 09:05 IMPRESSION: 1. Placement of an interval cholecystostomy tube since 10/30/2024. Cholecystotomy pigtail is coiled in the gallbladder fossa but there is no surrounding fluid/bile. The pigtail may be appropriate in position within a contracted gallbladder lumen adjacent to the gallbladder mass. To confirm placement a small amount of dilute contrast can be injected through the catheter if clinically appropriate. 2. Significant improvement in the gallbladder hydrops and the inflammatory changes and neoplastic changes in the RIGHT upper quadrant since 10/30/2024. 3. RIGHT common bile duct stent with no intrahepatic duct dilatation. 4. Small olena hepatis lymph nodes. 5. Highly suspicious for LEFT adrenal metastasis. Notified Cedric Hylton DO at 12/14/2024 10:[address] Procedure 12/14/24 11:28 IMPRESSION: 1. Uncomplicated dilute contrast injection of the cholecystotomy tube. 2. There is a small amount of contrast and blush of contrast adjacent to the insertion site of the cholecystotomy through the abdominal wall musculature. There may be a small fracture in the catheter. The patient's bandage became wet after the injection. 3. The pigtail of the cholecystotomy catheter appears appropriate. Patient's bandages were changed and the sutures at the insertion site of the cholecystotomy tube appear appropriate and there is no suture fracture. Laboratory Results WBC 17.72 10^3/uL (3.29-11.43) H 12/14/24 05:54 RBC 4.13 10^6/uL (3.85-5.65) 12/14/24 05:54 Hgb 13.10 g/dL (11.27-16.99) 12/14/24 05:54 Hct 41.5 % (36-47) 12/14/24 05:54 MCV 100.5 fl (85-98) H 12/14/24 05:54 MCH 31.7 pg (27-33) 12/14/24 05:54 MCHC 31.6 g/dL (30-55) 12/14/24 05:54 RDW 15.1 % (12.1-15.1) 12/14/24 05:54 Plt Count 235 10^3/cmm (157-399) 12/14/24 05:54 MPV 10.0 fL (7.4-10.4) 12/14/24 05:54 Neut % (Auto) 91.0 % 12/14/24 05:54 Lymph % (Auto) 5.3 % 12/14/24 05:54 Callaway % (Auto) 2.8 % 12/14/24 05:54 Eos % (Auto) 0.2 % 12/14/24 05:54 Baso % (Auto) 0.2 % 12/14/24 05:54 Neut # (Auto) 16.12 10^3/uL (1.8-7.7) H 12/14/24 05:54 Lymph # (Auto) 0.9 10^3/uL (0.8-4.8) 12/14/24 05:54 Callaway # (Auto) 0.5 10^3/uL (0.2-0.9) 12/14/24 05:54 Eos # (Auto) 0.0 10^3/uL (0.0-0.8) 12/14/24 05:54 Baso # (Auto) 0.0 10^3/uL (0.0-0.1) 12/14/24 05:54 Nucleated RBC % (auto) 0 % 12/14/24 05:54 Nucleated RBCs # 0.0 /100WBC 12/14/24 05:54 Sodium 134 mmol/L (136-145) L 12/14/24 05:54 Potassium 3.7 mmol/L (3.5-5.1) 12/14/24 05:54 Chloride 98 mmol/L (98-107) 12/14/24 05:54 Carbon Dioxide 19 mmol/L (22-29) L 12/14/24 05:54 Anion Gap 20.7 (5-19) H 12/14/24 05:54 BUN 10 mg/dL (8-23) 12/14/24 05:54 Creatinine 0.5 mg/dL (0.5-0.9) 12/14/24 05:54 GFR Calculation 125.9 mL/min (90-130) 12/14/24 05:54 Glucose 177 mg/dL (65-115) H 12/14/24 05:54 Calculated Osmolality 281 mOsm/kg (285-295) L 12/14/24 05:54 Calcium 8.8 mg/dL (8.5-10.5) 12/14/24 05:54 Total Bilirubin 0.2 mg/dL (0.15-1.2) 12/14/24 05:54 AST 31 U/L (0-32) 12/14/24 05:54 ALT 27 U/L (0-33) 12/14/24 05:54 Alkaline Phosphatase 120 U/L (35-105) H 12/14/24 05:54 Total Protein 6.9 g/dL (6.6-8.7) 12/14/24 05:54 Albumin 3.9 g/dL (3.5-5.2) 12/14/24 05:54 Globulin 3.0 g/dL (1.3-4.6) 12/14/24 05:54 Lipase 16 U/L (13-60) 12/14/24 05:54 Ethyl Alcohol < 10 mg/dL (0-10) 12/14/24 05:54 Discharge Plan Discharge Patient Disposition: Home Clinical Impression: Migration of percutaneous transhepatic biliary drain catheter Fracture of proximal end of right humerus Qualifiers: Encounter type: initial encounter Fracture type: closed Fracture morphology: o ther fracture Fracture alignment: displaced Qualified Code(s): S42.291A - Other displaced fracture of upper end of right humerus, initial encounter for closed fracture Condition: Stable Prescriptions: New hydrocodone-acetaminophen 5-325 mg tablet 1 tab PO Q6H PRN (Reason: pain) Qty: 25 0RF No Action ibuprofen [Advil] 200 mg Tablet 600 mg PO Q6H PRN (Reason: Pain) Senokot 8.7 mg Tablet,Chewable 17.4 mg PO BID PRN (Reason: Constipation) Discharge Orders: Discharge ED (Routine); Ordered 12/14/24 Ordered By: Cedric Hylton Referrals: Felipe Lay MD [Primary Care Provider] - Discharge Diet: Usual diet Discharge Activity: Resume usual activity Patient Instructions: Opioid Safety, Pain Management Activity Restrictions/Additional Instructions: Thank you for choosing [facility] for your healthcare needs today. It is very important that you follow up as instructed or that you return to the Emergency Department should you have concerns or if your condition changes or worsens in any way. You were seen in the emergency room after a fall. You have a fracture of the midshaft of the humerus. You will need follow-up with this with orthopedics. Reviewed the case with Dr. Sams who is orthopedist on-call. He recommends the splint that we applied along with a sling pain medications. And he will follow- up with you in his office. Case management will call for appointment. There was a concern about the placement of the cholecystectomy tube. Imaging specific to this with contrast injected shows it is in good position however there is appears to be a small leak at the insertion site through the abdominal wall. The radiologist suspects a small leak in the tube itself. While this is not emergent it should be addressed by the physicians you have seen previously at [facility]. You should call them to make an appointment as soon as you are able Sign Out Sign Out Data: Patient Sign Out occurred on 12/14/24 at 05:58. Patient's care was discussed, and care was transferred from Jourdan Clancy MD to Cedric Hylton DO. Coding Level of Care Code ED Digital Print Operator for Luisito Negron
--- NOTE | 2024-12-14 05:10 | CTR_ITS ---
PROCEDURE INFORMATION: Exam: CT Right Upper Extremity Without Contrast, Upper Arm Exam date and time: 12/14/2024 5:29 AM Age: 59 years old Clinical indication: Injury or trauma; Fall; Blunt trauma (contusions or hematomas); Arm, upper; Right; Additional info: Pre-op planning, with recons TECHNIQUE: Imaging protocol: Computed tomography of the right upper extremity without contrast. Exam focused on the upper arm. Radiation optimization: All CT scans at this facility use at least one of these dose optimization techniques: automated exposure control; mA and/or kV adjustment per patient size (includes targeted exams where dose is matched to clinical indication); or iterative reconstruction. COMPARISON: CR (UP EXM, ) 12/14/2024 5:05 AM RADIATION DOSE METRICS: Total DLP (mGy-cm): 622.14 FINDINGS: Bones/joints: Right proximal humeral diaphyseal fracture which is completely displaced. There is at least 3 cm displacement between proximal and distal components. The proximal aspect of the humerus is angled peripherally extending through the muscle into the superficial subcutaneous soft tissues. The mid to distal shaft component is displaced posteriorly. Glenohumeral joint is intact. Acromioclavicular joint is intact with osseous spurring. Soft tissues: Intramuscular edema. Subcutaneous soft tissue hemorrhage is seen laterally around the displaced proximal humeral component. CT/CT humerus RT wo con* [id number] IMPRESSION: Completely displaced right proximal humerus fracture.
[2024-12-14 05:58] LABS: Basophils % 0.2 %; Eosinophils % 0.2 %; Hematocrit 41.5 % (36-47); Lymphocytes # 0.9 10^3/uL (0.8-4.8); Lymphocytes % 5.3 %; Mean Corpuscular HGB Conc 31.6 g/dL (30-55); Mean Corpuscular Hemoglobin 31.7 pg (27-33); Mean Corpuscular Volume 100.5 fl (85-98); Monocytes # 0.5 10^3/uL (0.2-0.9); Monocytes % 2.8 %; Neutrophils # 16.12 10^3/uL (1.8-7.7); Nucleated Red Blood Cells % 0 %; Platelet Count 235 10^3/cmm (157-399); Red Blood Count 4.13 10^6/uL (3.85-5.65); Red Cell Distribution Width 15.1 % (12.1-15.1); White Blood Count 17.72 10^3/uL (3.29-11.43)
--- NOTE | 2024-12-14 06:00 | PC.NURSE ---
PT SO IS NOW IN THE ROOM, SO STATED, SHE FELL INTO THE CLOSET DOOR I THINK. SHE HAD 6 TWISTED TEAS LAST NIGHT. SO RECALLED THAT THEY WERE SUPPOSED TO GO TO A SPECIALIST TODAY AT [facility] AND THINKS THE PT MAY HAVE DRANK D/T ANXIETY ABOUT APPT. PT WAS ASKED BY NURSE IF SHE WAS IN PAIN AT THIS TIME AND SHE DENIED THAT SHE WAS. PT DOES OPEN HER EYES WHEN SPOKEN TO AND CAN FOLLOW DIRECTION. PT DOES HAVE A SLING ON, BUT IS HAVING DIFFICULTY KEEPING ARM STILL. SO IS STILL AT HER BEDSIDE AND ENCOURAGING PT TO REMAIN STILL TO PREVENT FURTHER DAMAGE TO THE AFFECTED ARM.
[2024-12-14 06:18] LABS: Alanine Aminotransferase 27 U/L (0-33); Albumin Level 3.9 g/dL (3.5-5.2); Alkaline Phosphatase 120 U/L (35-105); Blood Urea Nitrogen 10 mg/dL (8-23); Calcium 8.8 mg/dL (8.5-10.5); Carbon Dioxide 19 mmol/L (22-29); Chloride 98 mmol/L (98-107); Creatinine Clr Calc Pharmacy 123.0694; Glomerular Filtration Rate 125.9 mL/min (90-130); Glucose 177 mg/dL (65-115); Osmolality Calculated 281 mOsm/kg (285-295); Sodium 134 mmol/L (136-145); Total Bilirubin 0.2 mg/dL (0.15-1.2); Total Protein 6.9 g/dL (6.6-8.7)
[2024-12-14 06:27] LABS: Alcohol Level < 10 mg/dL (0-10)
[2024-12-14 06:29] LABS: Anion Gap 20.7 (5-19); Potassium 3.7 mmol/L (3.5-5.1)
[2024-12-14 06:30] LABS: Aspartate Amino Transferase 31 U/L (0-32)
[2024-12-14] MEDS: morphine 4 mg/mL SDV 1 mL IVP (08:31)
[2024-12-14] MEDS: ondansetron 2 mg/ML SDV 2 mL 4 MG IVP (08:31)
--- NOTE | 2024-12-14 09:05 | CT_ITS ---
WS: [id number] CT ABDOMEN AND PELVIS WITH CONTRAST HISTORY: abd pain, history of a cholecystotomy tube evaluate for displacement after fall. TECHNIQUE: Imaging performed of the abdomen and pelvis with IV contrast. Single phase imaging of the abdomen. Coronal and sagittal reformats are submitted. All CT scans at [facility] use at [address] one of these dose optimization techniques: automated exposure control; mA and/or kV adjustment per patient size (includes targeted exams where dose is matched to clinical indication); or iterative re construction. IV CONTRAST: Omnipaque 350; 100 mL IV. Oral contrast: No DLP: 698.63 mGy.cm COMPARISON: 10/30/2024 Lower thorax: Dependent changes at the lung bases. Heart is normal size. No hiatal hernia. Liver/biliary system: Liver is normal size. Mild pneumobilia which is new since the prior exam. Gallbladder: Abnormally distended gallbladder with mass was described on 10/30/2024. There has been a significant improvement in gallbladder hydrops since the prior examination. There is a cholecystotomy tube present. The cholecystotomy tube is adjacent to the gallbladder fundus may be external to the l umen or coiled within the contracted lumen. Peripherally enhancing soft tissue mass at the neck of th e gallbladder reidentified measuring 3.0 x 2.2 cm. No intrahepatic duct dilatation. Short segment com mon bile duct stent. No common bile duct obstruction. Pancreas: Normal size pancreas and pancreatic duct. No adjacent inflammation. Spleen: Normal size spleen. No mass or infarct. Adrenal glands: Normal RIGHT adrenal gland. Enhancing LEFT adrenal mass 2.7 x 3.0 cm similar to the p rior study. Right kidney: Normal. Left kidney: Normal. Aorta: Mild atherosclerosis with no aneurysm. Lymphadenopathy: Small lymph nodes of the olena hepatis are unchanged. Largest measures 1.4 cm. Free fluid: None. GI tract: No GI tract obstruction. No colitis. Normal appendix. Abdominal wall: Unremarkable abdominal wall. No hernia. Pelvis: Well-distended urinary bladder. Enlarged heterogeneous lobulated uterus from fibroids. Bones: Moderately severe degenerative changes at the hip joints, LEFT greater than RIGHT. CT/CT abdomen pelvis w con* [id number] IMPRESSION: 1. Placement of an interval cholecystostomy tube since 10/30/2024. Cholecystoto my pigtail is coiled in the gallbladder fossa but there is no surrounding fluid /bile. The pigtail may be appropriate in position within a contracted gallblad betty lumen adjacent to the gallbladder mass. To confirm placement a small amount of dilute contrast can be injected through the catheter if clinically appropri ate. 2. Significant improvement in the gallbladder hydrops and the inflammatory mohit nges and neoplastic changes in the RIGHT upper quadrant since 10/30/2024. 3. RIGHT common bile duct stent with no intrahepatic duct dilatation. 4. Small olena hepatis lymph nodes. 5. Highly suspicious for LEFT adrenal metastasis. Notified Cedric Hylton DO at 12/14/2024 10:50 AM.
[2024-12-14 09:36] LABS: Lipase 16 U/L (13-60)
[2024-12-14] MEDS: iohexol 350 mg/mL 500 mL Btl (per mL) IV (10:16)
--- NOTE | 2024-12-14 11:28 | CT_ITS ---
WS: [id number] CT ABDOMEN WITH cholecystotomy injection. HISTORY: Verify cholecystectomy tube placement Multiphase axial imaging performed to the abdomen. Oral contrast has not been provided. Coronal and s agittal reformats are submitted. All CT scans at [facility] use at least one of these dose op timization techniques: automated exposure control; mA and/or kV adjustment per patient size (includes targeted exams where dose is matched to clinical indication); or iterative reconstruction. CONTRAST: Dilute contrast injected through the cholecystotomy tube. Oral contrast: No DLP: 1371.19 mGy.cm COMPARISON: Study earlier the same day 12/14/2024 Cholecystotomy catheter was injected with dilute contrast to confirm placement of the catheter. Initial noncontrast CT first performed. The pigtail is coiled normally in the expected location of th e gallbladder fossa. After the initial injection there is contrast noted surrounding the mass within the gallbladder. There is a tiny focus of contrast along the catheter as it traverses the abdominal m usculature. The bandage did become wet during the catheter injection. Suspect there is a very tiny ho le in the pigtail catheter at the abdominal wall site. There is a blush of contrast within the abdomi nal wall musculature seen on the delayed imaging, image [address]/CT guided procedure [id number] IMPRESSION: 1. Uncomplicated dilute contrast injection of the cholecystotomy tube. 2. There is a small amount of contrast and blush of contrast adjacent to the i nsertion site of the cholecystotomy through the abdominal wall musculature. The re may be a small fracture in the catheter. The patient's bandage became wet af ter the injection. 3. The pigtail of the cholecystotomy catheter appears appropriate. Patient's bandages were changed and the sutures at the insertion site of the ch olecystotomy tube appear appropriate and there is no suture fracture.
--- NOTE | 2024-12-16 09:46 | DCPLANNER ---
Message sent to Ortho displaced fracture of upper end of right humerus
== END 2024-12-14 13:30 | disposition home or self-care (01) ==
PROVIDERS: Emergency Medicine; Emergency Provider Family Medicine; PCP Family Medicine
DX: S42.291A Other displaced fracture of upper end of right humerus, initial encounter for closed fracture (principal); T85.520A Displacement of bile duct prosthesis, initial encounter; X58.XXXA Exposure to other specified factors, initial encounter
CPT/HCPCS: 70450; 72125; 73060; 73200; 74150; 74177; 77012; 80053; 80307; 83690; 85025; 96374; 96375; 99285; A4590; J2270; J2405; Q9967

== ENCOUNTER → 2024-12-17 09:00 | Outpatient (BNVA) | payer BC, MEDICAID, SELFPAY | PROVIDERS: PCP Family Medicine; Visit Provider Orthopaedic Surgery | DX: Z01.818 Encounter for other preprocedural examination (principal); S42.291A Other displaced fracture of upper end of right humerus, initial encounter for closed fracture; W19.XXXA Unspecified fall, initial encounter | CPT/HCPCS: 36415; 73060; 80053; 81001; 85025 ==

== ENCOUNTER 2024-12-21 09:19 | Day surgery (SDC) | payer BC, MEDICAID, SELFPAY ==
[2024-12-21] VITALS (15 sets, daily range): BP systolic 125–189; BP diastolic 66–122; PULSE 63–112; RESP 14–20; TEMP 36.1–36.5; O2SAT 90–100; BMI 25.0
--- NOTE | 2024-12-21 10:14 | W.PM.OPSUD ---
Surgery/Procedure H&P Update DATE OF PROCEDURE: December 21, 2024 DATE H&P PERFORMED: 12/17/24 H&P UPDATE INFORMATION: I have reviewed H&P completed within last 30 days, I have examined patient prior to procedure and No changes to prior documentation PREOP DIAGNOSIS: Right humeral shaft fracture PLANNED PROCEDURE: Operation Date: 12/21/24 12:05 Proposed Procedures p ORIF Proximal Humerus(Right) - Donny Brantley DO
[2024-12-21] MEDS: sodium chloride 0.9% 1,000 ML 30 ML IV (10:22)
[2024-12-21] MEDS: labetalol 5 mg/mL SDV 20mL 10 MG IVP (10:25)
--- NOTE | 2024-12-21 10:48 | ANES.PREANE2 ---
Pre-Anesthetic Assessment Height/Weight: Height 1.68 m Weight 70.307 kg Temp Pulse Resp BP Pulse Ox O2 Del Method 97.2 F L 81 20 H 175/95 97 Room Air 12/21/24 09:52 12/21/24 10:42 12/21/24 10:42 12/21/24 10:42 12/21/24 10:42 12/21/24 10:42 Preop Diagnosis: Right humeral shaft fracture Operation Date: 12/21/24 12:05 Proposed Procedures p ORIF Proximal Humerus(Right) - Donny Brantley DO Familial anesthetic complications: none Was Beta Megan taken within 24 hours: Yes Last intake: Intake Last Liquid Date 12/20/24 Last Liquid Time 23:30 Last Solid Date 12/20/24 Last Solid Time 14:30 Social Alcohol (3-4 nights a week) and Tobacco cannabis 12/20 last use Exam alert, oriented x 3, clear to auscultation bilaterally and regular rate & rhythm Airway Submandibular: within normal limits Cervical ROM: within normal limits Mallampati: Class II Dentition: chipped Comments: Comments: upper and lower teeth missing a few teeth lower left jaw in poor shape, patient educated on risk. Pulmonary None reported CV/HEM Hypertension None reported Hepatic Biliary stent and drain 11/02/24 GI Gastroesophageal Reflux Disease no symptoms today, Metabolic None reported Musc/skel Weakness motor and sensory in right hand normal at this time. educated on ISB postoperative. Neuropsych None reported Anesthetic Plan ASA status: 3 Anesthesia: Eval. for regional block (ISB post operative) and General Medications/Allergies Home Medications Medication Instructions Recorded Confirmed Last Taken Type ibuprofen 200 mg tablet (Advil) 600 mg PO Q6H PRN Pain 10/30/24 12/18/24 10/27/24 History senna leaf extract 8.7 mg chewable 17.4 mg PO BID PRN Constipation 10/30/24 12/18/24 10/29/24 History tablet (Senokot) hydrocodone 5 mg-acetaminophen 325 1 tab PO Q6H PRN pain #25 tabs 12/14/24 12/18/24 12/17/24 Rx mg tablet Zyrtec 12/21/24 Unknown History omeprazole 20 mg delayed 20 mg PO DAILY 12/21/24 12/21/24 Unknown History release,disintegrating tablet Allergies Allergy/AdvReac Type Severity Reaction Status Date / Time Penicillins Allergy ALGY-Hives Verified 10/30/24 08:42 Tetanus Vaccines and Toxoid Allergy Unknown Verified 10/30/24 08:42 Current Medications Generic Name Dose Route Start Last Admin Trade Name Freq PRN Reason Stop Dose Admin Sodium Chloride 1,000 mls @ 30 mls/hr 12/21/24 09:30 12/21/24 10:22 Sodium Chloride 0.9% IV 12/22/24 09:29 30 mls/hr .Q24H BRENDAN Administration PFSH Anesthesia Social History Smoking and tobacco/nicotine status: unknown if used tobacco/nicotine Data Anesthesia Cardiac Studies: No Data to Display
[2024-12-21] MEDS: clindamycin 600 MG/50 ML PREMIX IV (11:00)
--- NOTE | 2024-12-21 12:14 | XR_ITS ---
WS: [id number] Exam: [place] [id number] Date/Time of Exam: 12/21/2024 12:15 PM Reason For Exam: OR PICS Comparison 12/17/2024. There is plate and screw fixation involving a spiral fracture at the junction of the middle and proxi mal thirds of the RIGHT humerus. Alignment is satisfactory for healing.
--- NOTE | 2024-12-21 12:26 | PM.OP ---
Operative Report Date of procedure: December 21, 2024 Pre-op diagnosis: Right humeral shaft fracture Post-op diagnosis: same Procedure done: Open reduction internal fixation of right humeral shaft fracture Surgeon: Donny Brantley DO Estimated blood loss (mL): 50 Procedure: Open reduction internal fixation of right humeral shaft fracture Please modular procedure after undergoing anesthesia patient was placed in the supine position. All his impingement well-padded patient's prepped draped sterile fashion. Skin is was made over the right proximal humerus. The deltoid and pec tendons remained intact. Fracture was identified reduced. Lag screw was placed to hold the reduction and then an 10 hole Deepak plate was placed.. 3 screws were placed proximal 3 screws distal to the fracture. AP lateral fluoroscopy ensured that the fracture and hardware in good position. Wounds were irrigated and closed with Vicryl and Monocryl suture. Sterile dressings were applied patient transferred the PACU in stable condition.
--- NOTE | 2024-12-21 12:56 | SUR.PHASEI ---
1248 Pt rates pain at a 7 on pain scale 0-10. Medicated per EVISCERATOR
[2024-12-21] MEDS: fentaNYL 50 mcg/mL INJ 2mL IVP (13:04)
[2024-12-21] MEDS: ondansetron 2 mg/ML SDV 2 mL 4 MG IVP ×2 (13:07→14:10)
--- NOTE | 2024-12-21 13:32 | ANES.PROC ---
Anesthesia Procedures Procedure/Date: 12/21/24 Nerve Block ^: Nerve Block 1: Main Anesthesia: general anesthesia Time Out Performed: Yes Consent: requested by attending/covering physician, from patient, from other, risks and benefits reviewed and patient agrees to proceed Nerve block location: supraclavicular (L) Anesthesia monitors applied: pulse oximetry, EKG, BP cuff and oxygen Nerve block position: supine Anesthetic Used: ropivicaine 0.5% (20 ml) and with decadron (4 mg) Ultrasound used to: recognize landmarks Nerve Stimulator Used?: No Interscalene/Femoral BLK: 2 stimuplex 22 g needle used for position and inplane approach, visualize local anesthetic spread and no vascular puncture identified Injection: neg aspiration of heme Patient Tolerated Procedure: well Complications: none
[2024-12-21] MEDS: famotidine 20 mg/2 mL INJ IVP (14:06)
[2024-12-21] MEDS: scopolamine 1 mg PATCH 1 PATCH TRANSDERMA (14:12)
[2024-12-21] MEDS: metoclopramide 5 mg/mL SDV 2 mL 10 MG IVP (15:01)
--- NOTE | 2024-12-21 15:25 | ANE.PACU2 ---
Inpatient post-anesthesia follow up: Airway intact: Yes Vital signs: Temperature 97.7 F Pulse Rate 66 Respiratory Rate 17 Blood Pressure 162/78 Pulse Oximetry 94 Oxygen Delivery Me thod Room Air Oxygen Flow Rate 2 Fraction of Inspir ed Oxygen Hydration adequate: Yes Nausea and vomiting: No Pain level: 1 Mental status: Baseline
== END 2024-12-21 15:25 | disposition home or self-care (01) ==
PROVIDERS: PCP Family Medicine; Visit Provider Orthopaedic Surgery
PROC: (CPT 23615; principal; 2024-12-21 11:45)
DX: S42.301A Unspecified fracture of shaft of humerus, right arm, initial encounter for closed fracture (principal); W19.XXXA Unspecified fall, initial encounter; I10 Essential (primary) hypertension
CPT/HCPCS: 24515; 73060; 76000; C1713; J0131; J1100; J1171; J1885; J2405; J2710; J2765; J2795; J3010; J3490; J7030

== ENCOUNTER → 2025-01-05 08:40 | Outpatient (BNVA) | payer BC, MEDICAID, SELFPAY | PROVIDERS: PCP Family Medicine; Visit Provider Orthopaedic Surgery | DX: S42.291A Other displaced fracture of upper end of right humerus, initial encounter for closed fracture (principal); X58.XXXA Exposure to other specified factors, initial encounter | CPT/HCPCS: 73060 ==

== ENCOUNTER → 2025-02-02 08:47 | Outpatient (BNVA) | payer BC, MEDICAID, SELFPAY | PROVIDERS: PCP Family Medicine; Visit Provider Orthopaedic Surgery | DX: S42.291A Other displaced fracture of upper end of right humerus, initial encounter for closed fracture (principal); X58.XXXA Exposure to other specified factors, initial encounter | CPT/HCPCS: 73060 ==

== ENCOUNTER → 2025-03-02 10:19 | Outpatient (BNVA) | payer BC, MEDICAID, SELFPAY | PROVIDERS: Visit Provider Orthopaedic Surgery | DX: S42.291A Other displaced fracture of upper end of right humerus, initial encounter for closed fracture (principal); X58.XXXA Exposure to other specified factors, initial encounter | CPT/HCPCS: 73060 ==

== ENCOUNTER → 2025-04-13 10:40 | Outpatient (BNVA) | payer BC, MEDICAID, SELFPAY | PROVIDERS: Visit Provider Orthopaedic Surgery | DX: S42.291A Other displaced fracture of upper end of right humerus, initial encounter for closed fracture (principal); X58.XXXA Exposure to other specified factors, initial encounter | CPT/HCPCS: 73060 ==

== ENCOUNTER → 2025-07-06 13:21 | Outpatient (BNVA) | payer BC, MEDICAID, SELFPAY | PROVIDERS: Visit Provider Orthopaedic Surgery | DX: Z98.890 Other specified postprocedural states (principal) | CPT/HCPCS: 73060 ==